=== PATIENT | male | born 1955 ===

== ENCOUNTER → 2018-05-20 21:22 | Outpatient (REF) | payer OTHER, SELFPAY ==
[2018-05-20 22:23] LABS: Add Manual Diff / Slide Review NO; Basophils Percent Auto 0.8 % (0-2); Eosinophils Percent Auto 4.1 % (2-4); Hematocrit 43.6 % (41-53); Hemoglobin 14.7 g/dL (13.5-17.5); Mean Corpuscular HGB Conc 33.8 % (30-36); Mean Corpuscular Hemoglobin 30.2 PG (26-34); Mean Corpuscular Volume 89.4 fL (80-100); Monocytes Percent Auto 8.5 % (3-14); Neutrophils Absolute Auto 3700 /uL (3000-5900); Neutrophils Percent Auto 63.6 % (50-75); Platelet Count 233 X10^3/uL (150-400); Red Blood Cell Count 4.88 X10^6/uL (4.5-5.9); Red Cell Distribution Width 12.8 % (11.6-14.8); White Blood Cell Count 5.8 X10^3/uL (4.5-11.0)
[2018-05-20 22:34] LABS: Rheumatoid Factor < 8.6 IU/mL (<12.0)
[2018-05-23 15:34] LABS: Estradiol 29 pg/mL (< 40)
[2018-05-23 20:27] LABS: ANA Screen, IFA Negative (Negative)
[2018-05-25 22:47] LABS: Testosterone Free 69.3 pg/mL (35.0-155.0); Testosterone Total 364 ng/dL (250-1100)
== END ==
LOC: LAB 21:22
PROVIDERS: Visit Provider Naturopath
DX: M79.643 Pain in unspecified hand (principal); R68.84 Jaw pain; M25.551 Pain in right hip; N52.9 Male erectile dysfunction, unspecified
CPT/HCPCS: 82670; 84402; 84403; 85025; 86038; 86430